=== PATIENT | female | born 1970 | race Caucasian/White ===

== ENCOUNTER 2022-02-15 12:17 | Outpatient (CLI) | payer OTHER | END 2022-02-15 12:18 | disposition home or self-care (01) | LOC: BICRAD 12:17 | PROVIDERS: ATTEND Internal Medicine | DX: Z02.71 Encounter for disability determination (principal) | CPT/HCPCS: 71046 ==

== ENCOUNTER 2023-03-30 14:31 | Outpatient (CLI) | payer OTHER | END 2023-03-30 14:32 | disposition home or self-care (01) | LOC: BICRAD 14:31 | PROVIDERS: ATTEND Preventive Medicine Occupational Medicine | DX: M25.552 Pain in left hip (principal) | CPT/HCPCS: 72170 ==